=== PATIENT | female | born 2005 | race Caucasian/White ===

== ENCOUNTER 2024-05-03 21:14 | Emergency (ER) | payer OTHER ==
[~2024-05-03] VITALS: Ht 162.6 cm; Wt 68.0 kg
== END 2024-05-04 00:28 | disposition home or self-care (01) ==
LOC: ER 21:14 → EDBD 21:14 → ER 05-04 00:28
DX: L60.0 Ingrowing nail (principal)
CPT/HCPCS: 20600; 99283-25